=== PATIENT | female | born 1960 | race Caucasian/White ===

== ENCOUNTER 2018-04-25 11:00 | Inpatient (IN) | payer MEDICARE, MEDICAID ==
[2018-04-12 14:13] LABS: BASOPHILS # (AUTO) 0.1 X10'3 (0-0.2); BASOPHILS % (AUTO) 0.9 % (0-1); EOSINOPHILS # (AUTO) 0.2 X10'3 (0-0.9); EOSINOPHILS % (AUTO) 3.3 % (0-6); LYMPHOCYTES # (AUTO) 2.4 X10'3 (1.1-4.8); LYMPHOCYTES % (AUTO) 32.2 % (21-51); MEAN CORPUSCULAR HEMOGLOBIN 30.1 PG (27.0-31.0); MEAN CORPUSCULAR HGB CONC 33.4 % (33.0-36.5); MEAN CORPUSCULAR VOLUME 90.2 FL (78-98); MEAN PLATELET VOLUME 8.1 FL (7.4-10.4); MONOCYTES # (AUTO) 0.7 X10'3 (0-0.9); MONOCYTES % (AUTO) 8.8 % (2-12); NEUTROPHILS # (AUTO) 4.1 X10'3 (1.8-7.7); NEUTROPHILS % (AUTO) 54.8 % (42-75); PRE OP HEMATOCRIT 40.2 % (35.0-45.0); PRE OP HEMOGLOBIN 13.4 g/dL (12.0-16.0); PRE OP PLATELET COUNT 208 X10'3 (140-440); RED BLOOD COUNT 4.46 X10'6 (4.20-5.60); RED CELL DISTRIBUTION WIDTH 13.9 % (11.5-14.5)
[2018-04-12 14:15] LABS: CLARITY,URINE CLOUDY (Clear); COLOR,URINE YELLOW (Yellow); GLUCOSE, URINE NEGATIVE (Neg); KETONES,URINE NEGATIVE (Neg); LEUKOCYTE ESTERASE ,URINE TRACE (Neg); NITRITES, URINE NEGATIVE (Neg); OCCULT BLOOD,URINE NEGATIVE (Neg); PROTEIN,URINE NEGATIVE (Neg); UROBILINOGEN,URINE 0.2 E.U/dL (0.2-1.0)
[2018-04-12 14:26] LABS: UA COLLECTION TYPE CLN CATCH MIDSTREAM
[2018-04-12 14:27] LABS: MUCUS STRANDS MODERATE /LPF (Neg); SQUAMOUS EPITHELIAL CELL,UR MANY /LPF (FEW)
[2018-04-12 14:28] LABS: BACTERIA,URINE 2+ /HPF (Neg); RBC,URINE 0-2 /HPF (0-2); WBC CLUMPS,URINE MODERATE /HPF (NEGATIVE)
[2018-04-12 14:34] LABS: ALBUMIN 4.1 G/DL (3.4-5.0); ALBUMIN/GLOBULIN RATIO 1.2 (1.1-1.5); ALKALINE PHOSPHATASE 74 IU/L (46-116); BLOOD UREA NITROGEN 25 MG/DL (7-18); BUN/CREATININE RATIO 26.9 (6.6-38.0); CALCIUM 9.6 MG/DL (8.5-10.1); CHLORIDE 102 MMOL/L (99-107); CREATININE 0.93 MG/DL (0.40-0.90); PRE OP ALT 51 U/L (30-65); PRE OP ANION GAP 12 (8-16); PRE OP AST 31 U/L (10-37); PRE OP BILIRUB, TOTAL 0.7 MG/DL (0.0-1.0); PRE OP GLUCOSE 105 MG/DL (70-104); PRE OP POTASSIUM 4.1 MMOL/L (3.4-5.1); PRE OP SODIUM 139 MMOL/L (135-145); TOTAL CARBON DIOXIDE 24.7 MMOL/L (24-32); TOTAL PROTEIN 7.5 G/DL (6.4-8.2); eGFR 62 ML/MIN
[~2018-04-25] VITALS: Ht 154.9 cm; Wt 133.1 kg
[~2018-04-25 11:00] MED LIST: CLOT30CR TOP; HYDR-3972 PO; LISI40TA4 PO; METF-950 PO; NAPR-996 PO
[2018-05-16] VITALS (12 sets, daily range): BP systolic 100–122; BP diastolic 50–73
[2018-05-16] MEDS ORDERED: ringers solution, lacted 1,000 ML IV SCH ×2 (05:00→14:15)
[2018-05-16] MEDS ORDERED: famotidine 20mg tablet PO ONE (05:30)
[2018-05-16] MEDS ORDERED: VANCOMYCIN INJ 1000 MG in NORMAL SALINE 250ml IV.SOLN IV ONE (05:30)
[2018-05-16] MEDS ORDERED: cefazolin/dext.iso 2gm/100 ML IV ONE (05:30)
[2018-05-16] MEDS ORDERED: tranexamic acid inj. 1,300 MG in normal saline 100ml IV soln 100 ML IV ONE ×3 (05:30→23:00)
[2018-05-16 13:50] LABS: ISTAT ANION GAP 13 (8-12); ISTAT BUN 16 mg/dL (6-19); ISTAT CL 104 mmol/L (99-107); ISTAT CREATININE 0.6 mg/dL (0.6-1.1); ISTAT GLUCOSE 96 mg/dL (70-104); ISTAT HGB 12.9 g/dl (12.0-16.0); ISTAT Hct 38 %PCV (35-48); ISTAT IONIZED CALCIUM 1.16 mmol/L (1.03-1.32); ISTAT K 3.8 mmol/L (3.5-5.1); ISTAT NA 142 mmol/L (135-145); ISTAT TOTAL CO2 25 mmol/L (24-32); ISTAT eGFR > 90 ML/MIN; POC BUN/CREATININE RATIO 26.7 (6.6-38.0)
[2018-05-16] MEDS ORDERED: meperidine/PF 25mg/ml syringe IV PRN ×3 (14:15)
[2018-05-16] MEDS ORDERED: morphine 4 MG/ML inj SYRINge IV PRN ×2 (14:15)
[2018-05-16] MEDS ORDERED: proCHLORperazine 10 MG/2 ml inj IV PRN (14:15)
[2018-05-16] MEDS ORDERED: ondansetron/PF 4mg/2ml inj IV PRN ×2 (14:15→20:20)
[2018-05-16] MEDS ORDERED: ketorolac trometh. 30mg/ml inj. ONE (15:37)
[2018-05-16] MEDS ORDERED: ROPIVAcaine 0.5% (5mg/ml) 30ml vial ONE ×2 (15:38→20:11)
[2018-05-16] MEDS ORDERED: ceFAZolin 1000mg inj ONE (15:39)
[2018-05-16] MEDS ORDERED: tetracaine 1% (10mg/ml) pres. free inj. ONE (16:52)
[2018-05-16] MEDS ORDERED: LIDOcaine 1%/PF 5ML 10 MG/ML VIAL ONE (16:55)
[2018-05-16] MEDS ORDERED: fentaNYL/PF 50MCG/1 ML 2ML syringe ONE (16:56)
[2018-05-16] MEDS ORDERED: MIDAZolam 1mg/ml 10ml vial ONE (16:56)
[2018-05-16] MEDS ORDERED: BUPIVAcaine/dex-water/PF 7.5 mg/ml 2ml ampul ONE (16:57)
[2018-05-16] MEDS ORDERED: propofol inj 20 ML IV ONE (17:51)
[2018-05-16] MEDS ORDERED: HYDROmorphone 1 mg/ml syringe IV PRN (20:20)
[2018-05-16] MEDS ORDERED: bisacodyl 10mg suppository rectal RC PRN (20:20)
[2018-05-16] MEDS ORDERED: diphenhydrAMINE 25mg capsule PO PRN ×2 (20:20)
[2018-05-16] MEDS ORDERED: oxyCODONE IR 5mg (immed. release) tablet PO PRN (20:20)
[2018-05-16] MEDS ORDERED: acetaminophen 325mg tablet PO PRN (20:20)
[2018-05-16] MEDS ORDERED: magnesium hydroxide 30ml (MOM) UD suspension PO PRN (20:20)
--- NOTE | 2018-05-16 20:52 | NUR ---
Received from OR via BED, accompanied by Anesthesiologist PAUL and report given by Anesthesiologist. PT W/LEFT KNEE DRSG, LEG WRAP, RYAN DRAIN, ICE PACK, CDI. Addendum: 05/16/18 at 2110 by Marcela Hernandez RN Amended: Links added.
--- NOTE | 2018-05-16 21:22 | NUR ---
Report called to receiving nurse. Transferred via BED, 1 BAG OF PT Belongings SENT W/PT TO ROOM 4024A, RECEIVING RN AT BEDSIDE TO RECEIVE PT, BLL, CALL LIGHT GIVEN, SIDE RAILS UP X2, FAMILY AT BEDSIDE. Special Issues communicated to receiving nurse. YES. Addendum: 05/16/18 at 2131 by Marcela Hernandez RN Amended: Links added.
[2018-05-16] MEDS: sennosides 8.6mg tablet PO SCH (22:53)
[2018-05-16] MEDS: gabapentin 300mg capsule PO SCH (22:53)
[2018-05-17] VITALS (7 sets, daily range): BP systolic 116–177; BP diastolic 53–76
[2018-05-17] MEDS: ceFAZolin 1GM/D5W- ADD-VANTAGE 50 ML IV SCH ×2 (00:06→07:54)
[2018-05-17] MEDS: potassium cl 20mEq in 1/2 NS 1,000 ML IV SCH ×4 (00:07→20:00)
[2018-05-17] MEDS: acetaminophen 325mg tablet PO SCH ×4 (02:06→19:59)
[2018-05-17] MEDS: ketorolac tromethamine 15mg/ml inj. IV SCH ×3 (02:08→13:56)
[2018-05-17] MEDS: oxyCODONE IR 5mg (immed. release) tablet PO PRN ×4 (05:45→20:00)
--- NOTE | 2018-05-17 06:22 | NUR ---
received report from moira ruiz rn
--- NOTE | 2018-05-17 06:38 | NUR ---
PATIENT REPORT GIVEN TO GORDO FLORES.
[2018-05-17 06:45] LABS: BASOPHILS % (AUTO) 0.4 % (0-1); EOSINOPHILS % (AUTO) 0.1 % (0-6); HEMATOCRIT 33.6 % (35.0-45.0); HEMOGLOBIN 11.1 g/dl (12.0-16.0); LYMPHOCYTES # (AUTO) 1.1 X10'3 (1.1-4.8); LYMPHOCYTES % (AUTO) 12.9 % (21-51); MEAN CORPUSCULAR HEMOGLOBIN 30.4 PG (27.0-31.0); MEAN CORPUSCULAR HGB CONC 33.1 % (33.0-36.5); MEAN CORPUSCULAR VOLUME 91.7 FL (78-98); MEAN PLATELET VOLUME 8.4 FL (7.4-10.4); MONOCYTES # (AUTO) 0.7 X10'3 (0-0.9); MONOCYTES % (AUTO) 7.7 % (2-12); NEUTROPHILS % (AUTO) 78.9 % (42-75); PLATELET COUNT 175 X10'3 (140-440); RED BLOOD COUNT 3.66 X10'6 (4.20-5.60); RED CELL DISTRIBUTION WIDTH 12.3 % (11.5-14.5); WHITE BLOOD COUNT 8.8 X10'3 (4.5-11.0)
[2018-05-17 06:47] LABS: ANION GAP 8 (8-16); CHLORIDE 106 MMOL/L (99-107); POTASSIUM 4.9 MMOL/L (3.5-5.1); SODIUM 139 MMOL/L (135-145); TOTAL CARBON DIOXIDE 25.2 MMOL/L (24-32)
[2018-05-17] MEDS: aspirin 325mg tablet PO SCH (07:50)
[2018-05-17] MEDS: lisinopril 20mg tablet PO SCH (07:51)
[2018-05-17] MEDS: gabapentin 300mg capsule PO SCH ×3 (07:52→20:00)
[2018-05-17] MEDS: naproxen 500mg tablet PO SCH ×2 (07:52→19:59)
[2018-05-17] MEDS: metFORMIN 500mg tablet PO SCH ×2 (07:52→19:59)
[2018-05-17] MEDS: clotrimazole topical cream 15gm tube TP SCH (07:57)
--- NOTE | 2018-05-17 07:59 | NUR ---
spoke w/roxana gamble and she said to non-admin gayo, continue to monitor
[2018-05-17] MEDS ORDERED: vancomycin/NS 1 GM ADD-VANTAGE 250 ML IV SCH (08:00)
[2018-05-17] MEDS: HYDROmorphone 1 mg/ml syringe IV PRN (12:58)
--- NOTE | 2018-05-17 15:11 | NUR ---
Patient is s/p left total knee arthroplasty and has left knee surgical wound. Eating well so far, 75-100% of regular diet. Patient given written high protein education handout with verbal review r/t wound heal. Addendum: 05/17/18 at [address] Amended: Links added.
--- NOTE | 2018-05-17 18:13 | NUR ---
gave report to ortega panchal rn
[2018-05-17] MEDS: celeCOXIB 100mg capsule PO SCH (19:59)
[2018-05-17] MEDS: sennosides 8.6mg tablet PO SCH (20:00)
[2018-05-18] MEDS: oxyCODONE IR 5mg (immed. release) tablet PO PRN ×3 (00:58→10:49)
[2018-05-18] MEDS: acetaminophen 325mg tablet PO SCH ×3 (02:16→13:25)
[2018-05-18] MEDS: potassium cl 20mEq in 1/2 NS 1,000 ML IV SCH (04:16)
[2018-05-18 05:56] LABS: BASOPHILS % (AUTO) 0.6 % (0-1); EOSINOPHILS # (AUTO) 0.2 X10'3 (0-0.9); EOSINOPHILS % (AUTO) 3.3 % (0-6); HEMATOCRIT 30.5 % (35.0-45.0); HEMOGLOBIN 10.4 g/dl (12.0-16.0); LYMPHOCYTES # (AUTO) 1.9 X10'3 (1.1-4.8); LYMPHOCYTES % (AUTO) 25.4 % (21-51); MEAN CORPUSCULAR VOLUME 91.4 FL (78-98); MEAN PLATELET VOLUME 8.6 FL (7.4-10.4); MONOCYTES # (AUTO) 0.8 X10'3 (0-0.9); MONOCYTES % (AUTO) 10.5 % (2-12); NEUTROPHILS # (AUTO) 4.5 X10'3 (1.8-7.7); NEUTROPHILS % (AUTO) 60.2 % (42-75); PLATELET COUNT 162 X10'3 (140-440); RED BLOOD COUNT 3.34 X10'6 (4.20-5.60); RED CELL DISTRIBUTION WIDTH 12.8 % (11.5-14.5); WHITE BLOOD COUNT 7.4 X10'3 (4.5-11.0)
[2018-05-18 06:00] VITALS: BP 156/51
--- NOTE | 2018-05-18 06:02 | NUR ---
Report given to Ute FLORES.
--- NOTE | 2018-05-18 06:30 | NUR ---
I have received patient report from Deion Vu RN
[2018-05-18] MEDS: HYDROmorphone 1 mg/ml syringe IV PRN ×2 (08:19→13:28)
[2018-05-18] MEDS: naproxen 500mg tablet PO SCH (08:19)
[2018-05-18] MEDS: lisinopril 20mg tablet PO SCH (08:20)
[2018-05-18] MEDS: metFORMIN 500mg tablet PO SCH (08:20)
[2018-05-18] MEDS: gabapentin 300mg capsule PO SCH ×2 (08:20→13:24)
[2018-05-18] MEDS: aspirin 325mg tablet PO SCH (08:20)
[2018-05-18] MEDS: clotrimazole topical cream 15gm tube TP SCH (08:21)
[2018-05-18] MEDS: celeCOXIB 100mg capsule PO SCH (08:21)
[2018-05-18] MEDS ORDERED: naloxone 0.4 mg/ml inj IV STA (08:35)
[2018-05-18] MEDS ORDERED: naloxone 0.4 mg/ml inj IV ONE (08:35)
[2018-05-18] MEDS ORDERED: ASPI-1 PO (08:46)
[2018-05-18] MEDS ORDERED: WALKERFR (08:47)
[2018-05-18 10:00] VITALS: BP 141/67
--- NOTE | 2018-05-18 14:40 | NUR ---
Patient discharged with daughter to home. She had all of her personal belongings and her aspirin called into [facility] in [place].
[2018-05-18] MEDS ORDERED: acetaminophen 325mg tablet PO PRN (20:20)
== END 2018-05-18 14:37 | disposition home health service (06) | DRG 470 ==
LOC: EDSTATUS 11:00 → PAS IN 05-16 12:32 → EDSTATUS 05-16 15:45 → ORTHO 4S 05-16 21:30
PROVIDERS: ADMIT Orthopaedic Surgery; ATTEND Orthopaedic Surgery
PROC: 8E0YXBZ Computer Assisted Procedure of Lower Extremity (ICD-10-PCS; 2018-05-16)
PROC: 3E0T3BZ Introduction of Anesthetic Agent into Peripheral Nerves and Plexi, Percutaneous Approach (ICD-10-PCS; 2018-05-16)
PROC: 0SRD0J9 Replacement of Left Knee Joint with Synthetic Substitute, Cemented, Open Approach (ICD-10-PCS; principal; 2018-05-16 16:52)
DX: M17.0 Bilateral primary osteoarthritis of knee (principal); D62 Acute posthemorrhagic anemia; Z68.43 Body mass index [BMI] 50.0-59.9, adult; E28.2 Polycystic ovarian syndrome; I10 Essential (primary) hypertension; J45.909 Unspecified asthma, uncomplicated; M25.762 Osteophyte, left knee; E66.01 Morbid (severe) obesity due to excess calories; M21.162 Varus deformity, not elsewhere classified, left knee; Z98.51 Tubal ligation status; Z79.899 Other long term (current) drug therapy; Z88.6 Allergy status to analgesic agent; Z87.891 Personal history of nicotine dependence; Z80.9 Family history of malignant neoplasm, unspecified
CPT/HCPCS: 36415; 80047; 80051; 80053; 81001; 82948; 85025; 87070; 97110; 97116; 97161; A6455; A7000; C1713; C1758; C1776; G0378; J0690; J1170; J1885; J2001; J2175; J2250; J2704; J2795; J3010; J3370; J3490; J7030; J7120